=== PATIENT | male | born 1975 | race Two or more races ===

== ENCOUNTER 2020-03-29 08:11 | Day surgery (SDC) | payer BC ==
[2020-03-25 10:51] VITALS: BMI 34.2
[~2020-03-29 08:11] MED LIST: LACTATED RINGERS 1,000 ML IV SCH; LIDOCAINE 1% (10MG/ML) FOR IV START INTRADERMA PRN
[2020-03-29 08:28] VITALS: TEMP 98
[2020-03-29] MEDS ORDERED: LACTATED RINGERS 1,000 ML IV ONE (08:29)
[2020-03-29] MEDS ORDERED: LIDOCAINE 1% INJ 10MG/ML (20 ML MDV) ONE (08:48)
[2020-03-29] MEDS ORDERED: fentaNYL (PF) 50 MCG/ML 2 ML AMP ONE (08:48)
[2020-03-29] MEDS ORDERED: PROPOFOL 10 MG/ML 20 ML VIAL IV ONE (08:48)
--- NOTE | 2020-03-29 09:14 | P.PCN ---
Date of Procedure: 03/29/20 Description of Procedure: BRIEF HISTORY: Patient is a 44-year-old male presenting for outpatient colonoscopy for evaluation of melena and positive stool testing. No prior colonoscopy. No change in bowel habits or blood per rectum noted grossly. PROCEDURE PERFORMED: Colonoscopy. PREOPERATIVE DIAGNOSIS: Melena, positive stool testing for occult blood, no prior colonoscopy. ESTIMATED BLOOD LOSS: Minimal. IV sedation per Anesthesia. PROCEDURE: After informed consent was obtained, the patient, was brought into the endoscopy unit. IV sedation was administered by Anesthesia under continuous monitoring. Digital rectal examination was normal. Initially the Olympus CF-190 flexible video colonoscope was then inserted in the rectum, gradually advanced into the cecum without any difficulty. Careful examination was performed as the scope was gradually being withdrawn. Ileocecal valve and the appendiceal orifice were visualized and appeared normal. Prep was excellent. Mucosa of the cecum, ascending colon, transverse colon, descending colon, sigmoid colon, and rectum appeared normal, except for some low-grade internal hemorrhoids. Retroflexion was performed in the rectum and no lesions were seen. The patient tolerated the procedure well. IMPRESSION: Normal-appearing colon from rectum to cecum. Internal hemorrhoids. RECOMMENDATIONS: Findings of this examination were discussed with the patient and his girlfriend. Okay to resume diet. Okay to resume medications. Would recommend repeat colonoscopy in 10 years for screening for neoplasm of the colon or colon guard in 3 years, or sooner if any signs or symptoms which warrant further evaluation develop.
[2020-03-29 09:27] VITALS: RESP 16
[2020-03-29 09:28] VITALS: BP 124/69; PULSE 74
== END 2020-03-29 10:00 | disposition home or self-care (01) ==
LOC: ORWHC2ENDO 08:11
PROVIDERS: ATTEND Internal Medicine
DX: K64.8 Other hemorrhoids (principal); K92.1 Melena; R19.5 Other fecal abnormalities; I10 Essential (primary) hypertension; E78.5 Hyperlipidemia, unspecified; K21.9 Gastro-esophageal reflux disease without esophagitis; Z79.899 Other long term (current) drug therapy; Z88.6 Allergy status to analgesic agent; Z88.5 Allergy status to narcotic agent
CPT/HCPCS: 45378; J2001; J3010; J2704

== ENCOUNTER → 2021-06-10 | Outpatient (CLI) | payer BC ==
--- NOTE | 2021-06-10 16:23 | US ---
EXAMINATION TYPE: US carotid duplex BILAT DATE OF EXAM: 06/10/2021 COMPARISON: NONE CLINICAL HISTORY: H54.7 Unspecified visual loss. intermittent left eye vision loss and left eye pain. EXAM MEASUREMENTS: RIGHT: Peak Systolic Velocity (PSV) cm/sec ----- Right CCA: 77.6 ----- Right ICA: 73.2 ----- Right ECA: 120.5 ICA/CCA ratio: 0.9 RIGHT: End Diastole cm/sec ----- Right CCA: 28.1 ----- Right ICA: 30.3 ----- Right ECA: 30.0 LEFT: Peak Systolic Velocity (PSV) cm/sec ----- Left CCA: 66.9 ----- Left ICA: 54.6 ----- Left ECA: 80.1 ICA/CCA ratio: 0.8 LEFT: End Diastole cm/sec ----- Left CCA: 23.3 ----- Left ICA: 26.7 ----- Left ECA: 23.3 VERTEBRALS (direction of flow): Right Vertebral: Antegrade Left Vertebral: Antegrade Rhythm: Normal Mild intimal wall thickening is noted at bilateral carotid bifurcation, but PSV is wnl bilaterally. IMPRESSION: 1. Intimal thickening without significant flow-limiting stenosis bilateral carotid bifurcations. Criteria for Assigning % of Stenosis / Diameter reduction (Estimation based on the indirect measurements of the internal carotid artery velocities (ICA PSV). 1. Normal (no stenosis)=ICA PSV < 125 cm/s: ratio < 2.0: ICA EDV<40 cm/s. 2. Less than 50% stenosis=ICA PSV < 125 cm/s: ratio < 2.0: ICA EDV<40 cm/s. 3. 50 to 69% stenosis=ICA PSV of 125 to 230 cm/s: ration 2.0 ? 4.0: ICA EDV 40-100 cm/s. 4. Greater than 70% stenosis to near occlusion= ICA PSV > 230 cm/s: ratio > 4.0: ICA EDV > 100 cm/s. 5. Near occlusion= ICA PSV velocities may be low or undetectable: variable ratio and ICA EDV. 6. Total occlusion=unable to detect flow.
== END | disposition home or self-care (01) ==
LOC: RADUSWWP 08:52
PROVIDERS: ATTEND Family Medicine
DX: H54.7 Unspecified visual loss (principal)
CPT/HCPCS: 93880

== ENCOUNTER → 2021-06-25 | Outpatient (CLI) | payer BC ==
--- NOTE | 2021-06-25 09:11 | MR ---
PRE AND POSTCONTRAST ENHANCED MRI OF THE BRAIN and orbits: CLINICAL HISTORY: Blurred vision and left ocular pain CONTRAST: 11ml gadavist Multiplanar and multispin-echo imaging of the brain and orbits was performed both before and after th e administration of contrast. The ventricles, basal cisterns and sulci overlying the cerebral convexities are within normal limits. There is no evidence for midline shift or mass effect. Acute intracranial hemorrhage or extra-axial collection is not evident. There are no abnormal areas of increased or decreased signal intensity within the brain parenchyma. Following contrast administration, there is no evidence for pathologic enhancement or enhancing mass. The paranasal sinuses and mastoid air cells are well-aerated. Evaluation of the orbits demonstrates the globes to be symmetric. There is no evidence for exophthalm os. The extraocular musculature extraocular musculature appears symmetric. No evidence for intra or e xtraconal mass. No enhancing lesion. IMPRESSION: Unremarkable pre and postcontrast enhanced MRI of the brain and orbits.
== END | disposition home or self-care (01) ==
LOC: RADMRIMAIN 07:54
PROVIDERS: ATTEND Family Medicine
DX: H57.12 Ocular pain, left eye (principal); H53.8 Other visual disturbances
CPT/HCPCS: 70543; 70553; A9585